=== PATIENT | male | born 1995 | race Caucasian/White ===

== ENCOUNTER 2018-09-07 08:46 | Emergency (ER) | payer SELFPAY ==
[~2018-09-07] VITALS: Ht 188 cm; Wt 95.5 kg
[2018-09-07 08:52] VITALS: Ht 188 cm; Wt 95.5 kg
[2018-09-07 09:21] LABS: HEMATOCRIT 43.3 % (42.0-54.0); HEMOGLOBIN 15.6 g/dL (13.5-17.5); LYMPHOCYTES 46.7 % (15-50); MCH 32.1 pg (26.0-34.0); MCV 89.1 fL (80.0-100.0); MEAN PLATELET VOLUME 9.2 fL (7.4-10.4); NEUTROPHILS 44.4 % (40-80); PLATELET COUNT 211 10x3/uL (130-400); RBC 4.86 10x6/uL (4.20-6.10); RDW 11.7 % (11.5-14.5); WBC 5.7 10x3/uL (4.8-10.8)
[2018-09-07 09:40] LABS: ALBUMIN 4.2 g/dL (3.4-5.0); ALKALINE PHOSPHATASE 87 U/L (46-116); ALT (SGPT) 104 U/L (10-68); BILIRUBIN - TOTAL 0.92 mg/dL (0.2-1.3); CALC OSMOLALITY 279 mosm/kg (275-300); CALCIUM 9.4 mg/dL (8.5-10.1); CARBON DIOXIDE 27.4 mmol/L (21.0-32.0); CHLORIDE - SERUM 105 mmol/L (98-107); CREATININE - SERUM 0.9 mg/dL (0.6-1.3); GLUCOSE 97 mg/dL (74-106); POTASSIUM - SERUM 3.9 mmol/L (3.5-5.1); PROTEIN - SERUM 7.8 g/dL (6.4-8.2); SODIUM 141 mmol/L (136-145); UREA NITROGEN 9 mg/dL (7-18); eGFR NON AFRICAN AMERICAN > 90 mL/min (90-120)
[2018-09-07 09:46] LABS: APTT 25.9 SECONDS (22.8-39.4); INR 1.01 (0.85-1.17); PROTIME 12.8 SECONDS (11.6-15.0)
[2018-09-07 09:52] LABS: CKMB 0.4 U/L (0.0-3.6); CREATINE KINASE 80 UL (21-232); MAGNESIUM - SERUM 2.2 mg/dL (1.8-2.4); TROPONIN-I < 0.017 ng/mL (0.000-0.060)
[2018-09-07 10:58] VITALS: BP 132/76
== END 2018-09-07 11:06 | disposition left against medical advice (07) ==
LOC: D.ER 08:46
PROVIDERS: Family Medicine
DX: F41.9 Anxiety disorder, unspecified (principal); R07.9 Chest pain, unspecified